=== PATIENT | male | born 1950 | race Hispanic/Latino ===

== ENCOUNTER 2018-09-04 09:55 | Outpatient (CLI) | payer MEDICARE | END 2018-09-04 09:56 | disposition home or self-care (01) | LOC: LAB 09:55 ==

== ENCOUNTER 2018-09-23 10:44 | Outpatient (CLI) | payer MEDICARE | END 2018-09-23 10:45 | disposition home or self-care (01) | LOC: RAD 10:44 ==

== ENCOUNTER 2018-10-14 07:47 | Outpatient (CLI) | payer MEDICARE | END 2018-10-14 07:48 | disposition home or self-care (01) | LOC: CARDIO 07:47 ==

== ENCOUNTER 2018-11-04 06:23 | Day surgery (SDC) | payer MEDICARE ==
[2018-10-31 15:32] VITALS: BMI 35.5
[2018-11-04] MEDS ORDERED: Phenylephrine 10 mg/ml Inj ONE (07:04)
[2018-11-04] MEDS ORDERED: Lidocaine PF 2% (5 ml) Inj (For Cardiac Arrhy) ONE (07:04)
[2018-11-04] MEDS ORDERED: Nitroglycerin 50mg in D5W 50 MG/250 ML BOTTLE IV ONE (07:05)
[2018-11-04] MEDS ORDERED: Iodixanol 320 MG/ML 100 ML BOTTLE IV ONE (07:05)
[2018-11-04] MEDS ORDERED: Iodixanol 320 MG/ML 200 ML BOTTLE IV ONE (07:05)
[2018-11-04] MEDS ORDERED: Iohexol 350mgl/ml 50 ML ONE (07:05)
[2018-11-04 07:19] LABS: BASO # 0.04 K/mm3 (0.0-2.0); BASO % 0.6 % (0.0-3.0); EOS # 0.6 (0.0-0.7); EOS % 9.6 % (1.5-5.0); HEMOGLOBIN 13.3 g/dL (14.0-18.0); LYMPH # 1.9 (1.2-3.4); LYMPH % 29.2 % (22.0-35.0); MEAN CORPUSCULAR HEMOGLOBIN 33.1 pg (25.0-35.0); MEAN CORPUSCULAR HGB CONC 33.4 g/dl (31.0-37.0); MEAN PLATELET VOLUME 9.6 fl (7.0-11.0); MONO # 0.6 (0.1-0.6); MONO % 8.5 % (1.0-6.0); RBC 4.02 10^6/uL (3.5-6.1); WHITE BLOOD COUNT 6.5 10^3/uL (4.5-11.0)
[2018-11-04 07:30] LABS: INR 1.04; PARTIAL THROMBOPLASTIN TIME 31.7 Seconds (26.9-38.3); PROTHROMBIN TIME 11.7 SECONDS (9.4-12.5)
[2018-11-04 07:44] LABS: BLOOD UREA NITROGEN 19 mg/dL (7-21); CALCIUM 9.2 mg/dL (8.4-10.5); GFR NON-AFRICAN AMERICAN > 60; HDL CHOLESTEROL 34 mg/dL (29-60)
[2018-11-04] MEDS ORDERED: Midazolam 2 MG/2 ML VIAL ONE ×2 (07:50→07:52)
[2018-11-04 07:54] LABS: LDL CHOLESTEROL 82 mg/dL (0-129)
[2018-11-04] MEDS ORDERED: Sodium Chloride 0.9% 1,000 ML IV SCH (08:30)
--- NOTE | 2018-11-04 09:08 | CARDCATH ---
PROCEDURE DATE: 11/04/2018 HISTORY: The patient is a 68-year-old male who presents with an abnormal stress test. His cardiac risk factors include hypertension, diabetes mellitus, on insulin pump as well as hypercholesterolemia. He complains of atypical chest discomfort. Given these findings, cardiac catheterization was recommended. PROCEDURES: Left heart catheterization with coronary arteriography and left ventriculogram and supra-aortic valvular injection. The right femoral artery was cannulated with 6-Uzbek sheath. There were no complications. I performed moderate sedation which included the presence of an independent trained observer that assisted in monitoring the patient's level of consciousness and physiologic status. After administration of Versed and fentanyl, my intra service time was 30 minutes. The findings on catheterization revealed a left ventricle that contracted normally. Estimated ejection fraction of 60%. Supra-aortic valvular injection revealed trace aortic insufficiency. The patient had a right-dominant circulation. The RCA revealed intimal irregularities without critical lesions. The left main artery is unremarkable. The LAD and diagonal vessels revealed mild intimal irregularities without critical lesions. The circumflex artery and obtuse marginal branches were free of significant disease. AngioSeal was used to close the femoral artery site. The patient tolerated the procedure well. In summary, the procedure revealed mild intimal irregularities without critical lesions. LV function is normal. Insignificant aortic insufficiency was noted. Given these findings, the patient's treatment should be cardiac risk reduction program which needs to include a weight reduction as well as an exercise program to complement his control of his diabetes as well as his hypercholesterolemia. I have discussed this with the patient and family in detail. Riki Scherer MD
[2018-11-04 09:20] VITALS: TEMP 97.3
[2018-11-04 12:06] VITALS: RESP 18
[2018-11-04 13:35] VITALS: O2SAT 97
[2018-11-04 13:59] VITALS: BP 159/74; PULSE 66
--- NOTE | 2018-11-05 07:09 | CARD ---
APPROVED REPORT Date of service: 11/04/2018 EKG Measurement Heart [id number] <Conclusion> Sinus bradycardia Otherwise normal ECG
== END 2018-11-04 14:45 | disposition home or self-care (01) ==
LOC: CATH 06:23
PROVIDERS: ATTEND Internal Medicine Cardiovascular Disease
DX: I20.0 Unstable angina (principal); R94.39 Abnormal result of other cardiovascular function study; I10 Essential (primary) hypertension; J43.9 Emphysema, unspecified; E11.9 Type 2 diabetes mellitus without complications; E78.00 Pure hypercholesterolemia, unspecified; Z87.891 Personal history of nicotine dependence
CPT/HCPCS: 36415; 80048; 80061; 82948; 85025; 85610; 85730; 86850; 86900; 93458; 93567; 99152; C1760; C1769; C2629; J1644; J2250; J3010; J7030; J7040; Q9966